=== PATIENT | female | born 1970 | race Caucasian/White ===

== ENCOUNTER 2017-05-23 14:29 | Emergency (ER) ==
[2017-05-23 14:37] VITALS: BP 136/83; BMI 28.6
[2017-05-23] MEDS ORDERED: ZOFRAN 4 MG/2 ML IM STA (15:03)
[2017-05-23] MEDS ORDERED: MORPHINE 4 MG/ML SYRINGE IM STA (15:03)
[2017-05-23] MEDS ORDERED: SODIUM CHLORIDE 1,000 ML IV STA (15:05)
[2017-05-23] MEDS ORDERED: MORPHINE 4 MG/ML SYRINGE IVP STA (15:07)
[2017-05-23] MEDS ORDERED: ZOFRAN 4 MG/2 ML IVP STA (15:07)
[2017-05-23 15:16] LABS: BASOPHILS % (AUTO) 0.4 % (0.0-3.0); EOSINOPHILS # (AUTO) 0.1 K/ul (0.0-0.7); EOSINOPHILS % (AUTO) 0.7 % (0.0-7.0); HEMATOCRIT 39.2 % (37.0-47.0); HEMOGLOBIN 12.7 g/dl (12.0-16.0); IMMATURE GRANULOCYTE % (AUTO) 0.3 % (0.0-5.0); LYMPHOCYTES # (AUTO) 1.3 K/uL (0.60-3.4); LYMPHOCYTES % (AUTO) 18.6 (10.0-50.0); MEAN CORPUSCULAR HEMOGLOBIN 26.7 pg (27.0-31.0); MEAN CORPUSCULAR HGB CONC 32.4 (31.8-35.4); MEAN CORPUSCULAR VOLUME 82.4 fl (81.0-99.0); MONOCYTES # (AUTO) 0.5 K/uL (0.4-2.0); MONOCYTES % (AUTO) 6.8 (0-10); NEUTROPHILS % (AUTO) 73.2; PLATELET COUNT 207 10^3/uL (140-440); RED BLOOD COUNT 4.76 10^6/ul (4.20-5.40); WHITE BLOOD COUNT 6.81 K/ul (4.6-10.2)
[2017-05-23 15:29] LABS: H. PYLORI ANTIBODY NEGATIVE (NEGATIVE)
[2017-05-23 15:30] LABS: H.PYLORI INTERNAL QC INTERNAL QC VALID
[2017-05-23 15:35] LABS: BILIRUBIN,URINE 2+ (NEGATIVE); KETONES,URINE 4+ (NEGATIVE); LEUKOCYTE ESTERASE ,URINE Trace (NEGATIVE); NITRITE,URINE Negative (NEGATIVE); PROTEIN,URINE 1+ (NEGATIVE); URINE, BLOOD 1+ (NEGATIVE)
[2017-05-23 15:36] LABS: ADD URINE MICROSCOPIC YES
[2017-05-23 15:38] LABS: ALBUMIN 3.7 g/dL (3.4-5.0); ALBUMIN/GLOBULIN RATIO 0.88; BILIRUBIN,TOTAL 0.47 mg/dL (0.00-1.20); BUN/CREATININE RATIO 7.05; CALCIUM 9.3 mg/dL (8.2-10.2); CREATININE 0.85 mg/dL (0.60-1.30); TOTAL PROTEIN 7.9 g/dL (6.4-8.2)
[2017-05-23] MEDS ORDERED: ROCEPHIN IM STA (15:41)
[2017-05-23] MEDS ORDERED: LIDOCAINE 1 % AMP 5 ML (SUTURES) IM STA ×2 (15:41→15:46)
[2017-05-23] MEDS ORDERED: ROCEPHIN 1 GM in SODIUM CHLORIDE 50 ML IV STA (15:46)
--- NOTE | 2017-05-23 15:48 | CT ---
EXAM: CT scan of the abdomen and pelvis without contrast HISTORY: Pain TECHNIQUE: Imaging of the abdomen and pelvis was performed without contrast. 5 mm thin axial image s and coronal and sagittal reconstructions were provided for interpretation. Comparison CT scan of the abdomen and pelvis without contrast dated 08/19/2016. FINDINGS: Diffuse low density changes are seen throughout the liver. The pancreas, adrenal glands a nd kidneys appear normal. The proximal ureters are normal size. There is a small nonobstructing ca lculus seen within the upper pole of the left kidney. The small and large bowel loops are normal in caliber. The appendix appears normal. There is no free air. No acute abnormalities are seen with in the anterior abdominal wall. The helical images obtained through the pelvis demonstrate a normal appearance of the rectum, urinar y bladder. There is no free fluid seen within the pelvis. Lung bases are clear. No lytic or blasti c lesions are seen within the osseous structures. No lytic or blastic lesions are seen within the os seous structures. IMPRESSION: There is no bowel obstruction or acute inflammatory change seen within the abdomen and pelvis. Nonobstructing nephrolithiasis seen within the left kidney. There is no ureteral obstruction. Fatty infiltration of the liver.
--- NOTE | 2017-05-23 15:48 | CT ---
EXAM: CT chest without contrast. HISTORY: Vomiting. Chest pain. Recent shoulder. COMPARISON: 08/28/2015. TECHNIQUE: Multiple axial images of the chest were obtained without intravenous contrast. Images w ere reformatted in the sagittal and coronal planes. FINDINGS: Subcutaneous edema is seen about the right shoulder with a few foci subcutaneous air note d posteriorly. Skin sonia are present over the right shoulder. Evaluation for lymphadenopathy is limited by lack of intravenous contrast. There is no lymphadenopa thy suggested. Heart size is normal. There is no pericardial effusion. The lungs are clear without consolidation, pleural effusion or pneumothorax. Limited images of the upper abdomen demonstrate no acute finding. Left nephrolithiasis is incomplet royer imaged. The liver is mildly low density suggesting fatty infiltration.. No acute osseous abnor mality identified. IMPRESSION: No acute abnormality of the chest.
[2017-05-23] MEDS ORDERED: ROCEPHIN ONE (15:58)
[2017-05-23 16:00] LABS: BACTERIA,URINE 2+ (NOT PRESENT)
[2017-05-23 16:50] LABS: CREATINE KINASE 145 U/L
[2017-05-23 16:52] LABS: CREATINE KINASE MB 0.4 ng/ml (0.0-3.6)
[2017-05-23 18:21] VITALS: TEMP 100.6
--- NOTE | 2017-05-23 18:36 | ED.PDOC ---
General ED Provider: Dr. DIEGO RICHARDS Chief Complaint: Nausea/Vomiting Stated Complaint: nausea , vomiting Time Seen by Physician: 14:30 (post op from should surgery / days ago) Mode of Arrival: Walk-In Information Source: Patient Exam Limitations: No limitations Primary Care Provider: ALICE MEJIA Nursing and Triage Documentation Reviewed and Agree: Yes (epigastric abdominal pain) GI Complaint Exam - Vomiting/Diarrhea Complaint/Exam Onset/Duration: no voiting crapming lower abdominal pain Symptoms Are: Still present Episodes of Vomiting over last 24 Hours: 3 Episodes of Diarrhea Over Last 24 Hours: 0 Initial Severity: Mild Current Severity: None Character of Vomiting: Reports: Non-bilious Aggravating: Reports: None Alleviating: Reports: None Associated Signs and Symptoms: Reports: Abdominal pain. Denies: Dizziness, Light-headedness, Melena, Hematemesis, Fever, Cramping Non-GI Risk Factors: Reports: None Surgical Obstruction Risk Factors: Reports: None Related Surgical History: Reports: None Differential Diagnoses: Bacterial Gastroenteritis, UTI, Other Review of Systems - Review Of Systems Constitutional: Reports: No symptoms Eyes: Reports: No symptoms Ears, Nose, Mouth, Throat: Reports: No symptoms Respiratory: Reports: No symptoms Cardiac: Reports: No symptoms GI: Reports: Abdominal pain (epigastric), Nausea, Vomiting : Reports: No symptoms Musculoskeletal: Reports: No symptoms Skin: Reports: No symptoms Neurological: Reports: No symptoms Endocrine: Reports: No symptoms Hematologic/Lymphatic: Reports: No symptoms All Other Systems: Reviewed and Negative Past Medical History - Past Medical History Previously Healthy: Yes Endocrine: Reports: Dyslipidemia Cardiovascular: Reports: None Respiratory: Reports: None Hematological: Reports: None Gastrointestinal: Reports: None Genitourinary: Reports: Kidney stones Neuro/Psych: Reports: Migraine, Anxiety Musculoskeletal: Reports: None Cancer: Reports: None Last Menstrual Period: september 2017 - Surgical History General Surgical History: Reports: Unknown - Family History Family History: Reports: Unknown - Social History Smoking Status: Never smoker Hx Substance Use: No Alcohol Screening: None Physical Exam - Physical Exam Appearance: Well-appearing, No pain distress, Well-nourished Eyes: SHAE, EOMI, Conjunctiva clear ENT: Ears normal, Nose normal, Oropharynx normal Respiratory: Airway patent, Breath sounds clear, Breath sounds equal, Respirations nonlabored Cardiovascular: RRR, Pulses normal, No rub, No murmur GI/: Soft, Nontender, No masses, Bowel sounds normal, No Organomegaly Musculoskeletal: Normal strength, ROM intact, No edema, No calf tenderness Skin: Warm, Dry, Normal color Neurological: Sensation intact, Motor intact, Reflexes intact, Cranial nerves intact, Alert, Oriented Psychiatric: Affect appropriate, Mood appropriate Interpretation - Radiology Interpretation Radiology Interpretation By: Radiologist Radiology Results: No acute changes Critical Care Note - Critical Care Note Total Time (mins): 0 Course - Course Hematology/Chemistry: 05/23/17 15:10 05/23/17 15:10 Orders, Labs, Meds: Lab Review 05/23/17 05/23/17 14:45 15:10 WBC 6.81 RBC 4.76 Hgb 12.7 Hct 39.2 MCV 82.4 MCH 26.7 L MCHC 32.4 RDW Coeff of Bro 13.9 Plt Count 207 Immature Gran % (Auto) 0.3 Neut % (Auto) 73.2 Lymph % (Auto) 18.6 [place] % (Auto) 6.8 Eos % (Auto) 0.7 Baso % (Auto) 0.4 Immature Gran # (Auto) 0.0 Neut # 5.0 Lymph # 1.3 [place] # 0.5 Eos # 0.1 Baso # 0.0 Sodium 138 Potassium 4.0 Chloride 102 Carbon Dioxide 21 Anion Gap 19.0 BUN 6 L Creatinine 0.85 Estimated GFR (MDRD) 72.00 BUN/Creatinine Ratio 7.05 Glucose 92 Lactic Acid 8.1 Calcium 9.3 Total Bilirubin 0.47 AST 23 ALT 24 Alkaline Phosphatase 68 Total Creatine Kinase 145 CK-MB (CK-2) 0.4 CK-MB (CK-2) % 0.25039 Troponin I < 0.0100 Total Protein 7.9 Albumin 3.7 Globulin 4.2 Albumin/Globulin Ratio 0.88 Amylase 28 Procalcitonin 0.09 Urine Color Yellow Urine Clarity Clear Urine pH 7.0 Ur Specific [place] 1.020 Urine Protein 1+ Urine Glucose (UA) Negative Urine Ketones 4+ Urine Blood 1+ Urine Nitrite Negative Urine Bilirubin 2+ Urine Urobilinogen 1.0 Ur Leukocyte Esterase Trace Urine Microscopic RBC 2-5 Urine Microscopic WBC 10-20 Ur Squamous Epith Cells 10-20 Urine Bacteria 2+ Urine Mucus 2+ Urine Yeast Trace H. pylori IgG Antibody Negative Orders Category Date Time Status EKG-(ED ONLY) Stat CARDIO 05/23/17 15:01 Completed ED IV/MEDIPORT/POWERPORT .ONCE EMERGENCY 05/23/17 15:29 Active AMYLASE Stat LAB 05/23/17 15:10 Completed BLOOD CULTURE Stat LAB 05/23/17 15:10 Received CBC W/ AUTO DIFF Stat LAB 05/23/17 15:10 Completed COMPREHENSIVE METABOLIC PANEL Stat LAB 05/23/17 15:10 Completed CREATINE KINASE Stat LAB 05/23/17 15:10 Completed H. PYLORI SCREEN Stat LAB 05/23/17 15:10 Completed LACTIC ACID Stat LAB 05/23/17 15:10 Completed PROCALCITONIN Stat LAB 05/23/17 15:10 Completed TROPONIN I Stat LAB 05/23/17 15:10 Completed URINALYSIS C & S IF INDICATED Stat LAB 05/23/17 14:45 Completed URINE CULTURE Stat LAB 05/23/17 14:45 Received 0.9 % Sodium Chloride [Saline Flush] MEDS 05/23/17 15:29 Active 1 syr IVF PRN PRN Ceftriaxone Sodium [Rocephin] MEDS 05/23/17 15:58 Discontinued 1 gm .ROUTE .STK-MED ONE Ceftriaxone Sodium [Rocephin] 1 gm MEDS 05/23/17 15:46 Discontinued 0.9 % Sodium Chloride [Sodium Chloride] 50 ml IV ONCE Lidocaine HCl/Pf [Lidocaine 1 % Amp 5 ml (Sutures)] MEDS 05/23/17 15:41 Discontinued 2.1 ml IM ONCE STA Lidocaine HCl/Pf [Lidocaine 1 % Amp 5 ml (Sutures)] MEDS 05/23/17 15:46 Discontinued 2.1 ml IM ONCE STA Morphine Sulfate [Morphine 4 mg/ml Syringe] MEDS 05/23/17 15:07 Discontinued 4 mg IVP ONCE STA Ondansetron HCl/Pf [Zofran 4 mg/2 ml] MEDS 05/23/17 15:07 Discontinued 4 mg IVP ONCE STA Sodium Chloride 0.9% [Sodium Chloride] 1,000 ml MEDS 05/23/17 15:05 Discontinued IV 1,000 mls/hr CT ABDOMEN/PELVIS WO CONTRAST Stat RADS 05/23/17 15:[address] CHEST W/O CONTRAST Stat RADS 05/23/17 15:13 Completed Medications Generic Name Dose Route Start Last Admin Trade Name Freq PRN Reason Stop Dose Admin Sodium Chloride 1 syr 05/23/17 15:29 05/23/17 15:46 Saline Flush IVF 1 syr PRN PRN Administration To flush IV Discontinued Medications Generic Name Dose Route Start Last Admin Trade Name Lilia PRN Reason Stop Dose Admin Sodium Chloride 1,000 mls @ 1,000 mls/hr 05/23/17 15:05 05/23/17 15:46 Sodium Chloride IV 05/23/17 16:04 1,000 mls/hr .Q1H STA Administration Ceftriaxone Sodium 1 gm/ 50 mls @ 75 mls/hr 05/23/17 15:46 05/23/17 16:09 Sodium Chloride IV 05/23/17 16:25 75 mls/hr ONCE STA Administration Lidocaine HCl 2.1 ml 05/23/17 15:41 05/23/17 16:08 Lidocaine 1 % Amp 5 Ml (Sutures) IM 05/23/17 15:42 Not Given ONCE STA Lidocaine HCl 2.1 ml 05/23/17 15:46 05/23/17 16:08 Lidocaine 1 % Amp 5 Ml (Sutures) IM 05/23/17 15:47 Not Given ONCE STA Morphine Sulfate 4 mg 05/23/17 15:07 05/23/17 15:51 Morphine 4 Mg/Ml Syringe IVP 05/23/17 15:08 4 mg ONCE STA Administration Ondansetron HCl 4 mg 05/23/17 15:07 05/23/17 15:48 Zofran 4 Mg/2 Ml IVP 05/23/17 15:08 4 mg ONCE STA Administration Vital Signs: Temp Pulse Resp BP Pulse Ox 05/23/17 18:20 100.6 F H 05/23/17 14:29 101.2 F H 105 H 20 136/83 94 L Departure - Departure Time of Disposition: 18:36 (return in am for recheck) Disposition: HOME SELF-CARE Discharge Problem: Nausea, Vomiting, Fatty liver Abdominal pain Qualifiers: Abdominal location: epigastric Qualifier Code: (R10.13) Epigastric pain Instructions: Acute Abdominal Pain (ED), Abdominal Pain (ED), Non-Alcoholic Fatty Liver Disease (ED) Condition: Good Pt referred to PMD for follow-up: No Additional Instructions: Please call your Family Physician as soon as possible to schedule a follow-up appointment.return for recheck in am by jluis Allergies/Adverse Reactions: Allergies paroxetine HCl [From Paxil] Adverse Reaction (Verified 05/23/17 14:39) sertraline HCl [From Zoloft] Adverse Reaction (Verified 05/23/17 14:39) Home Medications: Ambulatory Orders Sumatriptan Succinate [Imitrex] 50 mg PO PRN PRN 08/28/15 Tizanidine HCl [Zanaflex] 4 mg PO TID 05/23/17
== END 2017-05-23 18:57 | disposition home or self-care (01) ==
LOC: ED 14:29
DX: R10.13 Epigastric pain (principal); R11.2 Nausea with vomiting, unspecified; K76.0 Fatty (change of) liver, not elsewhere classified; Z98.890 Other specified postprocedural states; Z79.899 Other long term (current) drug therapy
CPT/HCPCS: 36415; 80053; 81001; 82150; 82550; 82553; 83605; 84145; 84484; 85025; 86677; 87040; 87086; 93005; 93010; 96361; 96365; 96375; 99283

== ENCOUNTER 2017-06-11 20:02 | Emergency (ER) ==
[2017-06-11 20:14] VITALS: BP 125/85; BMI 28.9
[2017-06-11] MEDS ORDERED: ZOFRAN 4 MG/2 ML IVP STA (20:20)
--- NOTE | 2017-06-11 20:31 | ED.PDOC ---
General ED Provider: Dr. MARLENY KANG Chief Complaint: Nausea/Vomiting Stated Complaint: having fever since yesterday, nauseaous and vomited once today. coughing some today Time Seen by Physician: 20:30 Mode of Arrival: Walk-In Information Source: Patient Primary Care Provider: ALICE MEJIA Nursing and Triage Documentation Reviewed and Agree: Yes GI Complaint Exam - Vomiting/Diarrhea Complaint/Exam Symptoms Are: Still present Episodes of Vomiting over last 24 Hours: 1 Initial Severity: Mild Current Severity: Mild Character of Vomiting: Reports: Non-bilious Aggravating: Reports: Food, Position Alleviating: Reports: None Non-GI Risk Factors: Reports: None Surgical Obstruction Risk Factors: Reports: None Related Surgical History: Reports: None Abdominal Findings: Present: None Differential Diagnoses: Viral Gastroenteritis, UTI Review of Systems - Review Of Systems Constitutional: Reports: Malaise, Weakness Eyes: Reports: No symptoms Ears, Nose, Mouth, Throat: Reports: No symptoms Respiratory: Reports: No symptoms Cardiac: Reports: No symptoms GI: Reports: Nausea, Vomiting : Reports: No symptoms Musculoskeletal: Reports: No symptoms Skin: Reports: No symptoms Neurological: Reports: No symptoms Endocrine: Reports: No symptoms Hematologic/Lymphatic: Reports: No symptoms All Other Systems: Reviewed and Negative Past Medical History - Past Medical History Previously Healthy: Yes Endocrine: Reports: Dyslipidemia Cardiovascular: Reports: None Respiratory: Reports: None Hematological: Reports: None Gastrointestinal: Reports: None Genitourinary: Reports: Kidney stones Neuro/Psych: Reports: Migraine, Anxiety Musculoskeletal: Reports: None Cancer: Reports: None Last Menstrual Period: ABLASION - Surgical History General Surgical History: Reports: None - Family History Family History: Reports: Unknown - Social History Smoking Status: Never smoker Hx Substance Use: No Alcohol Screening: None Physical Exam - Physical Exam Appearance: Ill-appearing, Obese Eyes: SHAE, EOMI, Conjunctiva clear ENT: Ears normal, Nose normal, Oropharynx normal Respiratory: Airway patent, Breath sounds clear, Breath sounds equal, Respirations nonlabored Cardiovascular: RRR, Pulses normal, No rub, No murmur GI/: Soft, Nontender, No masses, Bowel sounds normal, No Organomegaly Musculoskeletal: Normal strength, ROM intact, No edema, No calf tenderness Skin: Warm, Dry, Normal color Neurological: Sensation intact, Motor intact, Reflexes intact, Cranial nerves intact, Alert, Oriented Psychiatric: Affect appropriate, Mood appropriate Critical Care Note - Critical Care Note Total Time (mins): 0 Course - Course Hematology/Chemistry: 06/11/17 20:30 06/11/17 20:30 Orders, Labs, Meds: Lab Review 06/11/17 06/11/17 06/11/17 20:30 20:36 21:10 WBC 15.51 H RBC 4.51 Hgb 11.9 L Hct 36.7 L MCV 81.4 MCH 26.4 L MCHC 32.4 RDW Coeff of Bro 14.5 Plt Count 191 Immature Gran % (Auto) 0.5 Neut % (Auto) 85.5 Lymph % (Auto) 4.8 L [place] % (Auto) 8.8 Eos % (Auto) 0.1 Baso % (Auto) 0.3 Immature Gran # (Auto) 0.1 Neut # 13.3 H Lymph # 0.7 [place] # 1.4 Eos # 0.0 Baso # 0.0 Sodium 136 Potassium 3.5 Chloride 103 Carbon Dioxide 19 L Anion Gap 17.5 BUN 8 Creatinine 0.94 Estimated GFR (MDRD) 64.00 BUN/Creatinine Ratio 8.51 Glucose 127 H Lactic Acid 17.8 Calcium 8.4 Total Bilirubin 0.92 AST 23 ALT 38 Alkaline Phosphatase 74 Total Protein 7.1 Albumin 3.5 Globulin 3.6 Albumin/Globulin Ratio 0.97 Amylase 27 Lipase 9 Procalcitonin 0.14 Serum , Qual Negative Urine Color Yellow Urine Clarity Slightly Urine pH 7.5 Ur Specific [place] 1.020 Urine Protein 2+ Urine Glucose (UA) Negative Urine Ketones 1+ Urine Blood 2+ Urine Nitrite Negative Urine Bilirubin Negative Urine Urobilinogen 1.0 Ur Leukocyte Esterase Trace Urine Microscopic RBC 10-20 Urine Microscopic WBC 5-10 Ur Squamous Epith Cells 5-10 Urine Bacteria 1+ Influenza A (Rapid) Negative Influenza B (Rapid) Negative Orders Category Date Time Status AMYLASE Stat LAB 06/11/17 20:30 Completed BLOOD CULTURE Stat LAB 06/11/17 20:30 Received CBC W/ AUTO DIFF Stat LAB 06/11/17 20:30 Completed COMPREHENSIVE METABOLIC PANEL Stat LAB 06/11/17 20:30 Completed LACTIC ACID Stat LAB 06/11/17 20:30 Completed LIPASE Stat LAB 06/11/17 20:30 Completed PROCALCITONIN Stat LAB 06/11/17 20:30 Completed RAPID FLU A/B Stat LAB 06/11/17 20:36 Completed SERUM Stat LAB 06/11/17 20:30 Completed URINALYSIS C & S IF INDICATED Stat LAB 06/11/17 21:10 Completed URINE CULTURE Stat LAB 06/11/17 21:27 Received Ondansetron HCl/Pf [Zofran 4 mg/2 ml] MEDS 06/11/17 20:20 Discontinued 4 mg IVP ONCE STA CT ABDOMEN/PELVIS WO CONTRAST Stat RADS 06/11/17 20:20 Completed Medications Discontinued Medications Generic Name Dose Route Start Last Admin Trade Name Freq PRN Reason Stop Dose Admin Ondansetron HCl 4 mg 06/11/17 20:20 06/11/17 20:46 Zofran 4 Mg/2 Ml IVP 06/11/17 20:21 4 mg ONCE STA Administration Vital Signs: Temp Pulse Resp BP Pulse Ox 06/11/17 20:04 103.9 F H 131 H 20 125/85 98 Departure - Departure Time of Disposition: 21:33 Disposition: HOME SELF-CARE Discharge Problem: Renal colic on left side UTI (urinary tract infection) Qualifiers: Urinary tract infection type: acute cystitis Hematuria presence: with hematuria Qualifier Code: (N30.01) Acute cystitis with hematuria Instructions: Renal Colic (ED) Condition: Stable Pt referred to PMD for follow-up: Yes Additional Instructions: INCREASE HYDRATION TAKE MEDICATION WITH FOOD Prescriptions: Sulfamethoxazole/Trimethoprim [Bactrim Ds 800/160 mg] 1 tab PO Q12HR #20 tablet Hydrocodone Bit/Acetaminophen [[employer] 7.5-325] 1 each PO Q8H #14 tablet Ondansetron [Zofran Odt] 4 mg PO Q8H #20 tab.rapdis Allergies/Adverse Reactions: Allergies paroxetine HCl [From Paxil] Adverse Reaction (Verified 06/11/17 20:10) sertraline HCl [From Zoloft] Adverse Reaction (Verified 06/11/17 20:10) Home Medications: Ambulatory Orders Sumatriptan Succinate [Imitrex] 50 mg PO PRN PRN 08/28/15 Tizanidine HCl [Zanaflex] 4 mg PO TID 05/23/17 Hydrocodone Bit/Acetaminophen [[employer] 7.5-325] 1 each PO Q8H #14 tablet 06/11/17 Ondansetron [Zofran Odt] 4 mg PO Q8H #20 tab.rapdis 06/11/17 Sulfamethoxazole/Trimethoprim [Bactrim Ds 800/160 mg] 1 tab PO Q12HR #20 tablet 06/11/17 Disposition Discussed With: Patient
[2017-06-11 20:38] LABS: BASOPHILS % (AUTO) 0.3 % (0.0-3.0); EOSINOPHILS % (AUTO) 0.1 % (0.0-7.0); HEMATOCRIT 36.7 % (37.0-47.0); HEMOGLOBIN 11.9 g/dl (12.0-16.0); IMMATURE GRANULOCYTE % (AUTO) 0.5 % (0.0-5.0); LYMPHOCYTES # (AUTO) 0.7 K/uL (0.60-3.4); LYMPHOCYTES % (AUTO) 4.8 (10.0-50.0); MEAN CORPUSCULAR HEMOGLOBIN 26.4 pg (27.0-31.0); MEAN CORPUSCULAR HGB CONC 32.4 (31.8-35.4); MEAN CORPUSCULAR VOLUME 81.4 fl (81.0-99.0); MONOCYTES # (AUTO) 1.4 K/uL (0.4-2.0); MONOCYTES % (AUTO) 8.8 (0-10); NEUTROPHILS # (AUTO) 13.3 K/ul (2.0-6.9); NEUTROPHILS % (AUTO) 85.5; PLATELET COUNT 191 10^3/uL (140-440); RED BLOOD COUNT 4.51 10^6/ul (4.20-5.40); WHITE BLOOD COUNT 15.51 K/ul (4.6-10.2)
[2017-06-11 20:50] LABS: SERUM PREGNANCY INTERNAL QC INTERNAL QC VALID
[2017-06-11 20:55] LABS: FLU INTERNAL QC INTERNAL QC VALID; RAPID FLU A NEGATIVE (NEGATIVE); RAPID FLU B NEGATIVE (NEGATIVE)
[2017-06-11 20:59] LABS: ALBUMIN 3.5 g/dL (3.4-5.0); ALBUMIN/GLOBULIN RATIO 0.97; ANION GAP 17.5; BILIRUBIN,TOTAL 0.92 mg/dL (0.00-1.20); BUN/CREATININE RATIO 8.51; CALCIUM 8.4 mg/dL (8.2-10.2); CREATININE 0.94 mg/dL (0.60-1.30); POTASSIUM 3.5 mmol/L (3.5-5.10); TOTAL PROTEIN 7.1 g/dL (6.4-8.2)
[2017-06-11 21:19] LABS: BILIRUBIN,URINE Negative (NEGATIVE); KETONES,URINE 1+ (NEGATIVE); LEUKOCYTE ESTERASE ,URINE Trace (NEGATIVE); NITRITE,URINE Negative (NEGATIVE); PH,URINE 7.5 (5-9); PROTEIN,URINE 2+ (NEGATIVE); URINE, BLOOD 2+ (NEGATIVE)
[2017-06-11 21:27] LABS: ADD URINE MICROSCOPIC YES; BACTERIA,URINE 1+ (NOT PRESENT)
--- NOTE | 2017-06-11 21:27 | CT ---
Exam: CT of the abdomen pelvis without intravenous contrast. Comparison: 05/23/2017. Reason for exam: Nausea and vomiting. FINDINGS: No pleural effusion, or focal consolidation in the partially imaged lung bases. The spleen, gallbladder, pancreas, and adrenal glands are grossly unremarkable. The liver is lower i n attenuation in the spleen. There are similar appearing nonobstructive stones in the left renal collecting system measuring thre e and 2 mm respectively. Similar appearing inflammatory changes are seen in the left perinephric fa t. No hydronephrosis, hydroureter, or nephrolithiasis. The right kidney is unremarkable without hydronephrosis, hydroureter, or nephrolithiasis. No focal small bowel dilatation or transition point. The appendix is grossly unremarkable. No inflammatory changes are seen in the abdominal or pelvic fat. No intra-abdominal free air or pelvic free fluid. Impression: 1. Nonobstructive left left renal stones measuring up to 3 mm. No hydronephrosis or hydroureter. 2. Hepatic steatosis. 3. No acute inflammatory changes are seen within the abdomen pelvis. Report faxed at [id number] hours on 06/11/2017.
[2017-06-11] MEDS ORDERED: ROCEPHIN 1 GM in SODIUM CHLORIDE 50 ML IV STA (21:32)
[2017-06-11] MEDS ORDERED: ROCEPHIN ONE (21:33)
[2017-06-11 21:41] VITALS: TEMP 103.4
[2017-06-11] MEDS ORDERED: MOTRIN PO STA (21:41)
== END 2017-06-11 22:50 | disposition home or self-care (01) ==
LOC: ED 20:02
DX: N30.01 Acute cystitis with hematuria (principal); N23 Unspecified renal colic; Z87.442 Personal history of urinary calculi; Z79.899 Other long term (current) drug therapy
CPT/HCPCS: 36415; 80053; 81001; 82150; 83605; 83690; 84145; 84703; 85025; 87040; 87086; 87186; 87804; 96365; 96375; 99284

== ENCOUNTER 2018-07-23 16:45 | Emergency (ER) ==
[2018-07-23 16:58] VITALS: BP 145/95; TEMP 98.9; BMI 30.7
--- NOTE | 2018-07-23 17:58 | ED.PDOC ---
General ED Provider: Dr. DIEGO RICHARDS Chief Complaint: Back Pain Stated Complaint: low back pain, flank pain Time Seen by Physician: 16:50 (negative trauma) Mode of Arrival: Walk-In Information Source: Patient Exam Limitations: No limitations Primary Care Provider: ALICE MEJIA Nursing and Triage Documentation Reviewed and Agree: Yes Does patient meet sepsis criteria?: No System Inflammatory Response Syndrome: Not Applicable Sepsis Protocol: For patient's 13 years and over: Temp is 96.8 and below OR 101 and greater Pulse >90 BPM Resp >20/minute Acutely Altered Mental Status Are patient's symptoms suggestive of a new infection, such as: -Pneumonia -Skin, Soft Tissue -Endocarditis -UTI -Bone, Joint Infection -Implantable Device -Acute Abdominal Infection -Wound Infection -Meningitis -Blood Stream Catheter Infection -Unknown Musculoskeletal Complaint Exam - Back Pain Complaint/Exam Mechanism of Injury: Reports: No known trauma Onset/Duration: 1 week Symptoms Are: Resolved Timing: Intermittent Episodes Lasting: Hours Initial Severity: Moderate Current Severity: Moderate Location: Reports: Discrete Character: Reports: Aching Aggravating: Reports: Movements, Lifting, Bending, Walking Alleviating: Reports: Rest, Position Associated Signs and Symptoms: Denies: Swelling, Redness, Bruising, Fever, Weakness, Numbness, Tingling, Abdominal pain, Flank pain, Bladder incontinence, Bowel incontinence, Weight loss, Pain with weight bearing Related History: Reports: Similar episode TAD Risk Factors: Reports: None AAA Risk Factors: Reports: None Cauda Equina Risk Factors: Reports: None Epidural Abcess Risk Factors: Reports: None Related Surgical History: Reports: None Focal Tenderness: No Paraspinal Muscle Tenderness: No Paraspinal Muscle Spasm: No Scoliosis: No Lordosis: No Kyphosis: No Hip Motion Testing Pain: Right Negative, Left Negative Focal Weakness: Present: None Focal Sensory Loss: Present: None Gait: Present: Normal Differential Diagnoses: Renal Colic, Strain, Sprain Review of Systems - Review Of Systems Constitutional: Reports: No symptoms Eyes: Reports: No symptoms Ears, Nose, Mouth, Throat: Reports: No symptoms Respiratory: Reports: No symptoms Cardiac: Reports: No symptoms GI: Reports: No symptoms : Reports: No symptoms Musculoskeletal: Reports: Back pain Skin: Reports: No symptoms Neurological: Reports: No symptoms Endocrine: Reports: No symptoms Hematologic/Lymphatic: Reports: No symptoms All Other Systems: Reviewed and Negative Past Medical History - Past Medical History Previously Healthy: Yes Endocrine: Reports: Dyslipidemia Cardiovascular: Reports: None Respiratory: Reports: None Hematological: Reports: None Gastrointestinal: Reports: None Genitourinary: Reports: Kidney stones Neuro/Psych: Reports: Migraine, Anxiety Musculoskeletal: Reports: None Cancer: Reports: None Last Menstrual Period: none - Surgical History General Surgical History: Reports: None - Family History Family History: Reports: Unknown - Social History Smoking Status: Never smoker Hx Substance Use: No Alcohol Screening: None Physical Exam - Physical Exam Appearance: Well-appearing, No pain distress, Well-nourished Eyes: SHAE, EOMI, Conjunctiva clear ENT: Ears normal, Nose normal, Oropharynx normal Respiratory: Airway patent, Breath sounds clear, Breath sounds equal, Respirations nonlabored Cardiovascular: RRR, Pulses normal, No rub, No murmur GI/: Soft, Nontender, No masses, Bowel sounds normal, No Organomegaly Musculoskeletal: Normal strength, ROM intact, No edema, No calf tenderness Skin: Warm, Dry, Normal color Neurological: Sensation intact, Motor intact, Reflexes intact, Cranial nerves intact, Alert, Oriented Psychiatric: Affect appropriate, Mood appropriate Interpretation - Radiology Interpretation Radiology Interpretation By: Radiologist Radiology Results: No acute changes Re-Evaluation - Re-Evaluation Time of Re-Evaluation: 17:00 Status: Improved Vital Signs Stable: Yes Pain Level: 0 Appearance: NAD Lungs: Clear Skin: Warm and Dry Neuro: Alert and Oriented X3 CV: RRR - Re-Evaluation Time of Re-Evaluation: 17:59 Status: Improved Vital Signs Stable: Yes Pain Level: 0 Appearance: NAD Skin: Warm and Dry Neuro: Alert and Oriented X3 CV: RRR Critical Care Note - Critical Care Note Total Time (mins): 0 Course - Course Hematology/Chemistry: 07/23/18 17:07 07/23/18 17:07 Orders, Labs, Meds: Lab Review 07/23/18 07/23/18 07/23/18 16:55 17:07 17:07 WBC 7.20 RBC 4.89 Hgb 13.1 Hct 40.9 MCV 83.6 MCH 26.8 L MCHC 32.0 RDW Coeff of Bro 13.7 Plt Count 219 Immature Gran % (Auto) 0.0 Neut % (Auto) 59.4 Lymph % (Auto) 31.1 [place] % (Auto) 7.9 Eos % (Auto) 1.0 Baso % (Auto) 0.6 Immature Gran # (Auto) 0.0 Neut # (Auto) 4.3 Lymph # (Auto) 2.2 [place] # (Auto) 0.6 Eos # (Auto) 0.1 Baso # (Auto) 0.0 Sodium 138 Potassium 3.8 Chloride 103 Carbon Dioxide 24 Anion Gap 14.8 BUN 9 Creatinine 0.84 Estimated GFR (MDRD) 73.00 BUN/Creatinine Ratio 10.71 Glucose 95 Calcium 9.5 Total Bilirubin 0.5 AST 42 H ALT 54 Alkaline Phosphatase 67 Total Protein 7.7 Albumin 3.9 Globulin 3.8 Albumin/Globulin Ratio 1.03 Urine Color Yellow Urine Clarity Clear Urine pH 6.0 Ur Specific [place] 1.020 Urine Protein Negative Urine Glucose (UA) Negative Urine Ketones Negative Urine Blood Negative Urine Nitrite Negative Urine Bilirubin Negative Urine Urobilinogen 0.2 Ur Leukocyte Esterase Negative Orders Category Date Time Status CBC W/ AUTO DIFF Stat LAB 07/23/18 16:54 Ordered COMPREHENSIVE METABOLIC PANEL Stat LAB 07/23/18 16:54 Ordered URINALYSIS C & S IF INDICATED Stat LAB 07/23/18 16:[address] ABD/PEL WO RENAL STONE PROT Stat RADS 07/23/18 16:54 Ordered Vital Signs: Temp Pulse Resp BP Pulse Ox 07/23/18 16:45 98.9 F 100 H 18 145/95 H 97 Departure - Departure Time of Disposition: 18:20 Disposition: HOME SELF-CARE Discharge Problem: Backache Instructions: Flank Pain (ED), Back Pain (ED), Low Back Strain (ED), Acute Low Back Pain (ED) Condition: Good Pt referred to PMD for follow-up: Yes IPMP verified?: No Additional Instructions: Please call your Family Physician as soon as possible to schedule a follow-up appointment. Prescriptions: Hydrocodone/Acetaminophen [[place] 10-325 Tablet] 1 each PO Q8HR #7 tablet Allergies/Adverse Reactions: Allergies paroxetine HCl [From Paxil] Adverse Reaction (Verified 07/23/18 16:49) sertraline HCl [From Zoloft] Adverse Reaction (Verified 07/23/18 16:49) Home Medications: Ambulatory Orders Sumatriptan Succinate [Imitrex] 50 mg PO PRN PRN 08/28/15 Cyclobenzaprine HCl [Flexeril] 10 mg PO TID 07/23/18 Hydrocodone/Acetaminophen [[place] 10-325 Tablet] 1 each PO Q8HR #7 tablet
--- NOTE | 2018-07-23 18:02 | CT ---
EXAM: CT abdomen pelvis without contrast HISTORY: Bilateral flank pain and urinary symptoms COMPARISON: CT abdomen pelvis 06/11/2017 and multiple priors TECHNIQUE: Serial axial images of the abdomen pelvis were performed from the lung bases through the inferior pelvis without contrast. These were viewed in multiple planes. FINDINGS: The lung bases are clear. Evaluation is limited due to lack of contrast. 0.2 cm nonobstructing stone is noted on the left. The re is no obstructive uropathy or visualized obstructing stone. The urinary bladder is minimally dist ended. The liver is unremarkable. The gallbladder is unremarkable. The adrenal glands are normal. Spleen is normal. The pancreas is unremarkable. Stomach is mildly distended. Small bowel in the abdomen pelvis is unremarkable. There is a small fat-containing umbilical hernia. The appendix is unremarkable. The colon is unremarkable. The uterus is unremarkable. There is no free air, free fluid or lymphadenopathy. The osseous structures are unchanged. IMPRESSION: 1. No obstructive uropathy or hydronephrosis. Nonobstructing left renal stone is present. 2. Small fat-containing umbilical hernia.
== END 2018-07-23 18:14 | disposition home or self-care (01) ==
LOC: ED 16:45
DX: M54.5 Low back pain (principal); Z87.442 Personal history of urinary calculi
CPT/HCPCS: 36415; 74176; 80053; 81001; 85025; 99283

== ENCOUNTER 2019-01-29 13:04 | Outpatient (CLI) ==
--- NOTE | 2019-01-29 16:18 | DI ---
EXAM: KUB HISTORY: Pain. FINDINGS: There is a single loop of mildly gaseous distended bowel in the left upper quadrant. No e xcess fecal retention. No organomegaly or suspicious calcification. Bones within normal limits. IMPRESSION: 1. Nonspecific bowel gas pattern. Follow-up KUB if indicated clinically.
== END 2019-01-29 13:05 | disposition home or self-care (01) ==
LOC: RAD 13:04
PROVIDERS: ATTEND Family Medicine
DX: R10.9 Unspecified abdominal pain (principal)